=== PATIENT | male | born 2005 | race African-American/Black ===

== ENCOUNTER 2025-04-03 14:26 | Outpatient (CLI) | payer OTHER, SELFPAY ==
[2025-04-03 23:45] LABS: Chlamydia DNA Amplified* NOT DETECTED (No Detected); GC DNA Amplified* NOT DETECTED (No Detected)
== END 2025-04-03 14:27 | disposition home or self-care (01) ==
PROVIDERS: Visit Provider Physician Assistant
DX: Z11.3 Encounter for screening for infections with a predominantly sexual mode of transmission (principal); Z11.4 Encounter for screening for human immunodeficiency virus [HIV]
CPT/HCPCS: 86703; 87491; 87591